=== PATIENT | female | born 2005 | race Caucasian/White ===

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

== ENCOUNTER 2024-04-25 20:45 | Emergency (ER) | payer BC ==
[2024-04-25] MEDS: Ondansetron 4 MG Tab.DIS PO ONE (21:23)
[2024-04-25] MEDS: Morphine 4 MG/ML Syringe IM ONE (21:24)
[2024-04-25 22:42] VITALS: BP 103/85; PULSE 88
== END 2024-04-25 22:43 | disposition home or self-care (01) ==
LOC: JD.ED 20:45
DX: K08.89 Other specified disorders of teeth and supporting structures (principal); R22.0 Localized swelling, mass and lump, head; G89.18 Other acute postprocedural pain; Z91.013 Allergy to seafood; Z79.899 Other long term (current) drug therapy; Z86.16 Personal history of COVID-19
CPT/HCPCS: 96372; 99283; A9270; J2270